=== PATIENT | male | born 1960 | race Caucasian/White ===

== ENCOUNTER 2018-10-13 15:05 | Emergency (ER) | payer OTHER ==
[~2018-10-13] VITALS: Ht 172.7 cm; Wt 74.8 kg
== END 2018-10-13 18:12 | disposition home or self-care (01) ==
LOC: ER 15:05
DX: R07.89 Other chest pain (principal); R19.7 Diarrhea, unspecified

== ENCOUNTER 2023-05-20 08:50 | Outpatient (CLI) | payer OTHER | END 2023-05-20 09:02 | disposition home or self-care (01) | LOC: RAD 08:50 | DX: M54.18 Radiculopathy, sacral and sacrococcygeal region (principal); M54.51 Vertebrogenic low back pain | CPT/HCPCS: 72148 ==

== ENCOUNTER 2024-04-03 10:45 | Emergency (ER) | payer OTHER ==
[~2024-04-03] VITALS: Ht 172.7 cm; Wt 72.6 kg
[2024-04-03] MEDS ORDERED: LOSARTAN-HCTZ1 EAC2 PO (11:18)
[2024-04-03] MEDS ORDERED: KETOROLAC TROMETHAMINE 15 MG VIAL IV ONE (12:45)
[2024-04-03] MEDS ORDERED: PANTOPRAZOLE SODIUM 40 MG/VIAL VIAL IV PUSH ONE (12:45)
[2024-04-03] MEDS ORDERED: HYOSCYAMINE SULFATE 0.125 MG TAB.SUBL SL ONE (12:45)
[2024-04-03] MEDS ORDERED: KETOROLAC TROMETHAMINE 30 MG VIAL ONE (12:51)
[2024-04-03] MEDS ORDERED: HYOSCYAMINE SULFATE 0.125 MG TAB.SUBL ONE (12:51)
[2024-04-03 12:53] LABS: HEMATOCRIT 44.1 % (39.0-48.0); HEMOGLOBIN 15.1 g/dL (13-16.00); MEAN CELL VOLUME 80.7 fL (80.0-100.00); MEAN CORPUSCULAR HEMOGLOBIN 27.6 pg (27.00-32.0); MEAN CORPUSCULAR HGB CONC 34.2 g/dl (32.0-36.0); PLATELET COUNT 230 K/uL (150-450); RED BLOOD COUNT 5.46 M/uL (4.00-6.00)
[2024-04-03] MEDS ORDERED: BARIUM SULFATE 450 ML ORAL.SUSP PO ONE (13:02)
[2024-04-03 13:23] LABS: ALBUMIN 3.7 gm/dL (3.4-5.0); BILIRUBIN TOTAL 0.47 mg/dL (0.3-1.2); CALCIUM 9.1 mg/dL (8.5-10.1); CREATININE SERUM 1.08 mg/dL (0.70-1.30); GFR 69.05; GLOBULINA 3.9 G/DL (2.4-3.5); POTASSIUM 3.91 mEq/L (3.5-5.1); TOTAL PROTEIN 7.6 gm/dL (6.4-8.2)
[2024-04-03 13:47] LABS: PH,URINE 5.5 (5.0-8.0); URINE APPEARANCE Clear; URINE BILIRRUBIN Negative (NEGATIVE); URINE BLOOD Negative; URINE COLOR Dark Yellow; URINE GLUCOSE Negative (NEGATIVE); URINE LEUKOCYTE Negative; URINE NITRATE Negative; URINE PROTEIN Negative (NEGATIVE)
[2024-04-03 13:52] LABS: URINE EPITHELIAL CELLS 2.3 uL (0.0-38.8); URINE RBC 9.3 uL (0.0-20.8); URINE WBC 2.3 uL (0.0-23.2)
== END 2024-04-03 18:23 | disposition home or self-care (01) ==
LOC: ER 10:47
PROVIDERS: General Practice
DX: K59.1 Functional diarrhea (principal); Z88.0 Allergy status to penicillin; R10.84 Generalized abdominal pain